=== PATIENT | female | born 1980 | race Caucasian/White ===

== ENCOUNTER 2019-03-04 22:29 | Inpatient (IN) | payer MEDICAID ==
[2019-03-04] MEDS ORDERED: TENORMIN50 MG PO (22:46)
[2019-03-04 23:47] LABS: BASOPHILS 0.1 % (0-2); EOSINOPHILS 0.5 % (0-7); HEMATOCRIT 39.9 % (36.0-48.0); HEMOGLOBIN 13.6 g/dL (12-16); IMMATURE GRANULOCYTES 0.2 % (0-5); LYMPHOCYTES 12.7 % (15-50); MCH 31.9 pg (26.0-34.0); MCHC 34.1 g/dL (31.0-37.0); MCV 93.4 fL (80.0-100.0); MEAN PLATELET VOLUME 11.7 fL (7.4-10.4); MONOCYTES 7.3 % (2-11); NEUTROPHILS 79.2 % (40-80); PLATELET COUNT 186 10x3/uL (130-400); RBC 4.27 10x6/uL (4.00-5.40); WBC 13.8 10x3/uL (4.8-10.8)
[2019-03-05 00:03] LABS: HCG SERUM NEGATIVE (NEGATIVE)
[2019-03-05 00:07] LABS: ALBUMIN 3.6 g/dL (3.4-5.0); ALKALINE PHOSPHATASE 141 U/L (46-116); ALT (SGPT) 133 U/L (10-68); BILIRUBIN - TOTAL 0.58 mg/dL (0.2-1.3); CALC OSMOLALITY 284 mosm/kg (275-300); CALCIUM 8.9 mg/dL (8.5-10.1); CARBON DIOXIDE 30.8 mmol/L (21.0-32.0); CHLORIDE - SERUM 106 mmol/L (98-107); GLUCOSE 119 mg/dL (74-106); POTASSIUM - SERUM 3.6 mmol/L (3.5-5.1); PROTEIN - SERUM 7.5 g/dL (6.4-8.2); SODIUM 143 mmol/L (136-145); UREA NITROGEN 10 mg/dL (7-18); eGFR NON AFRICAN AMERICAN 66 mL/min (90-120)
[2019-03-05 00:16] LABS: CKMB 0.1 U/L (0.0-3.6); CREATINE KINASE 70 UL (21-215)
[2019-03-05 00:29] VITALS: BP 122/82
[2019-03-05 00:39] LABS: TROPONIN-I < 0.017 ng/mL (0.000-0.060)
[2019-03-05 00:55] LABS: LIPASE 47323 U/L (73-393)
[2019-03-05 00:57] LABS: AMYLASE - SERUM 2907 U/L (25-115)
[2019-03-05 05:37] VITALS: BP 103/49
[2019-03-05 06:31] VITALS: BP 103/79; BMI 39.5
[2019-03-05 08:57] VITALS: BP 96/66
[2019-03-05 09:10] LABS: BASOPHILS 0.1 % (0-2); EOSINOPHILS 0.9 % (0-7); HEMATOCRIT 37.5 % (36.0-48.0); HEMOGLOBIN 12.4 g/dL (12-16); IMMATURE GRANULOCYTES 0.2 % (0-5); LYMPHOCYTES 21.6 % (15-50); MCH 31.3 pg (26.0-34.0); MCHC 33.1 g/dL (31.0-37.0); MCV 94.7 fL (80.0-100.0); MEAN PLATELET VOLUME 11.8 fL (7.4-10.4); MONOCYTES 9.6 % (2-11); NEUTROPHILS 67.6 % (40-80); PLATELET COUNT 165 10x3/uL (130-400); RBC 3.96 10x6/uL (4.00-5.40); RDW 13.1 % (11.5-14.5); WBC 9.8 10x3/uL (4.8-10.8)
[2019-03-05 09:36] LABS: ALBUMIN 3.1 g/dL (3.4-5.0); BILIRUBIN - TOTAL 0.36 mg/dL (0.2-1.3); CALCIUM 8.2 mg/dL (8.5-10.1); CARBON DIOXIDE 28.6 mmol/L (21.0-32.0); PROTEIN - SERUM 6.4 g/dL (6.4-8.2)
[2019-03-05 09:37] LABS: ANION GAP 9.6 mmol/L (8-16); POTASSIUM - SERUM 4.2 mmol/L (3.5-5.1)
[2019-03-05 13:51] VITALS: BMI 39.4
[2019-03-05 17:21] VITALS: BP 87/58
[2019-03-05 22:01] VITALS: BP 102/58
[2019-03-06 05:09] VITALS: BP 99/55
[2019-03-06 05:19] LABS: BASOPHILS 0.1 % (0-2); HEMOGLOBIN 11.6 g/dL (12-16); IMMATURE GRANULOCYTES 0.3 % (0-5); LYMPHOCYTES 18.3 % (15-50); MCH 30.9 pg (26.0-34.0); MCHC 32.2 g/dL (31.0-37.0); MCV 95.7 fL (80.0-100.0); MEAN PLATELET VOLUME 11.4 fL (7.4-10.4); MONOCYTES 7.9 % (2-11); NEUTROPHILS 71.4 % (40-80); PLATELET COUNT 151 10x3/uL (130-400); RBC 3.76 10x6/uL (4.00-5.40); RDW 13.3 % (11.5-14.5); WBC 9.5 10x3/uL (4.8-10.8)
[2019-03-06 05:46] LABS: ALBUMIN 2.7 g/dL (3.4-5.0); ALKALINE PHOSPHATASE 128 U/L (46-116); CALCIUM 7.6 mg/dL (8.5-10.1); CARBON DIOXIDE 25.4 mmol/L (21.0-32.0); CHLORIDE - SERUM 108 mmol/L (98-107); CREATININE - SERUM 0.8 mg/dL (0.6-1.3); GLUCOSE 95 mg/dL (74-106); LIPASE 1053 U/L (73-393); POTASSIUM - SERUM 3.7 mmol/L (3.5-5.1); PROTEIN - SERUM 6.2 g/dL (6.4-8.2); SODIUM 142 mmol/L (136-145); eGFR NON AFRICAN AMERICAN 85 mL/min (90-120)
[2019-03-06 06:11] LABS: ALT (SGPT) 311 U/L (10-68); AMYLASE - SERUM 232 U/L (25-115); CALC OSMOLALITY 280 mosm/kg (275-300); UREA NITROGEN 7 mg/dL (7-18)
[2019-03-06 09:23] VITALS: BP 118/64
[2019-03-06 14:17] VITALS: BP 140/80
[2019-03-06 17:40] VITALS: BP 103/60
[2019-03-06 22:28] VITALS: BP 120/74
[2019-03-07 05:02] VITALS: BP 123/67
[2019-03-07 06:46] LABS: BASOPHILS 0.1 % (0-2); EOSINOPHILS 0 % (0-7); HEMATOCRIT 36.3 % (36.0-48.0); HEMOGLOBIN 12.1 g/dL (12-16); IMMATURE GRANULOCYTES 0.3 % (0-5); LYMPHOCYTES 7.3 % (15-50); MCH 31.3 pg (26.0-34.0); MCHC 33.3 g/dL (31.0-37.0); MCV 93.8 fL (80.0-100.0); MEAN PLATELET VOLUME 13.1 fL (7.4-10.4); NEUTROPHILS 86.3 % (40-80); RBC 3.87 10x6/uL (4.00-5.40); RDW 12.7 % (11.5-14.5)
[2019-03-07 06:49] LABS: PLATELET COUNT 116 10x3/uL (130-400); WBC 15.1 10x3/uL (4.8-10.8)
[2019-03-07 07:16] LABS: ALBUMIN 2.8 g/dL (3.4-5.0); ALKALINE PHOSPHATASE 145 U/L (46-116); ALT (SGPT) 245 U/L (10-68); BILIRUBIN - TOTAL 0.42 mg/dL (0.2-1.3); CALC OSMOLALITY 272 mosm/kg (275-300); CALCIUM 8.1 mg/dL (8.5-10.1); CARBON DIOXIDE 22.2 mmol/L (21.0-32.0); CHLORIDE - SERUM 103 mmol/L (98-107); GLUCOSE 112 mg/dL (74-106); LIPASE 114 U/L (73-393); PROTEIN - SERUM 6.2 g/dL (6.4-8.2); SODIUM 137 mmol/L (136-145); UREA NITROGEN 7 mg/dL (7-18)
[2019-03-07 07:17] LABS: AMYLASE - SERUM 56 U/L (25-115); CREATININE - SERUM 0.5 mg/dL (0.6-1.3); POTASSIUM - SERUM 4.3 mmol/L (3.5-5.1); eGFR NON AFRICAN AMERICAN > 90 mL/min (90-120)
[2019-03-07 08:20] VITALS: BP 168/84
[2019-03-07] MEDS ORDERED: HYDROCODON-ACE1 EAC7 PO (08:56)
[2019-03-07 12:26] VITALS: BP 141/58
== END 2019-03-07 12:58 | disposition home or self-care (01) | DRG 419 ==
LOC: D.ER 22:29 → D.MS 03-05 03:34
PROVIDERS: Family Medicine; Surgery; ADMIT Internal Medicine Nephrology
PROC: 0FT44ZZ Resection of Gallbladder, Percutaneous Endoscopic Approach (ICD-10-PCS; principal; 2019-03-06 10:30)
DX: K85.10 Biliary acute pancreatitis without necrosis or infection (principal); K80.80 Other cholelithiasis without obstruction; E86.0 Dehydration; E66.01 Morbid (severe) obesity due to excess calories; Z68.39 Body mass index [BMI] 39.0-39.9, adult

== ENCOUNTER 2021-02-06 14:48 | Emergency (ER) | payer MEDICAID ==
[~2021-02-06] VITALS: Ht 152.4 cm; Wt 103.6 kg
[~2021-02-06 14:48] MED LIST: HYDROCODON-ACE1 EAC7 PO; TENORMIN50 MG PO
[2021-02-06 14:51] VITALS: BP 121/79; Ht 152.4 cm; Wt 103.6 kg
[2021-02-06 15:13] LABS: BASOPHILS 0.2 % (0-2); EOSINOPHILS 1.5 % (0-7); HEMATOCRIT 41.5 % (36.0-48.0); HEMOGLOBIN 13.6 g/dL (12-16); IMMATURE GRANULOCYTES 0.4 % (0-5); LYMPHOCYTE ABS# 2.43 10x3/uL (1.18-3.74); MCH 31.2 pg (26.0-34.0); MCHC 32.8 g/dL (31.0-37.0); MCV 95.2 fL (80.0-100.0); MEAN PLATELET VOLUME 11.2 fL (7.4-10.4); MONOCYTES 8.5 % (2-11); NEUTROPHIL ABS# 6.61 10x3/uL (1.56-6.13); NEUTROPHILS 65.4 % (40-80); RBC 4.36 10x6/uL (4.00-5.40); WBC 10.1 10x3/uL (4.8-10.8)
[2021-02-06 15:20] LABS: CALC OSMOLALITY 269 mosm/kg (275-300); CALCIUM 9.3 mg/dL (8.5-10.1); CARBON DIOXIDE 25.9 mmol/L (21.0-32.0); CHLORIDE - SERUM 102 mmol/L (98-107); CREATININE - SERUM 0.7 mg/dL (0.6-1.3); GLUCOSE 92 mg/dL (74-106); POTASSIUM - SERUM 3.8 mmol/L (3.5-5.1); SODIUM 136 mmol/L (136-145); UREA NITROGEN 7 mg/dL (7-18); eGFR NON AFRICAN AMERICAN > 90 mL/min (90-120)
[2021-02-06 15:29] LABS: HCG SERUM POSITIVE (NEGATIVE)
[2021-02-06 15:33] LABS: PLATELET COUNT 194 10x3/uL (130-400)
[2021-02-06 15:36] LABS: BILIRUBIN NEGATIVE (NEGATIVE); KETONE NEGATIVE (NEGATIVE); NITRITE NEGATIVE (NEGATIVE); UROBILINOGEN NORMAL mg/dL (< 2)
[2021-02-06 15:37] LABS: BACTERIA FEW HPF (NONE SEEN); SQUAMOUS EPITHELIAL 0-5 HPF (0-4); WHITE CELLS - URINE 0-5 HPF (0-4)
[2021-02-06 15:49] LABS: ALBUMIN 3.3 g/dL (3.4-5.0); ALKALINE PHOSPHATASE 79 U/L (30-120); ALT (SGPT) 21 U/L (10-68); BILIRUBIN - TOTAL 0.19 mg/dL (0.2-1.3); HCG - QUANTITATIVE (MATERNAL) 53176 mIU/mL; PROTEIN - SERUM 7.5 g/dL (6.4-8.2)
== END 2021-02-06 16:20 | disposition home or self-care (01) ==
LOC: D.ER 14:48
PROVIDERS: Family Medicine
DX: N93.9 Abnormal uterine and vaginal bleeding, unspecified (principal); R10.32 Left lower quadrant pain; I10 Essential (primary) hypertension

== ENCOUNTER → 2021-02-08 11:07 | Outpatient (CLI) | payer MEDICAID ==
[2021-02-06 14:51] VITALS: BMI 44.6
== END | disposition home or self-care (01) ==
LOC: D.US 11:07
PROVIDERS: ATTEND Obstetrics & Gynecology
DX: R31.0 Gross hematuria (principal)

== ENCOUNTER 2021-02-19 11:35 | Inpatient (IN) | payer MEDICAID ==
[2021-02-06 14:51] VITALS: BMI 44.6
[2021-02-19 12:23] LABS: BASOPHILS 0.1 % (0-2); HEMATOCRIT 36.8 % (36.0-48.0); HEMOGLOBIN 12.2 g/dL (12-16); IMMATURE GRANULOCYTES 0.5 % (0-5); LYMPHOCYTE ABS# 1.74 10x3/uL (1.18-3.74); LYMPHOCYTES 20.1 % (15-50); MCH 31.3 pg (26.0-34.0); MCHC 33.2 g/dL (31.0-37.0); MCV 94.4 fL (80.0-100.0); MEAN PLATELET VOLUME 11.5 fL (7.4-10.4); MONOCYTES 8.7 % (2-11); NEUTROPHIL ABS# 5.94 10x3/uL (1.56-6.13); NEUTROPHILS 68.6 % (40-80); PLATELET COUNT 204 10x3/uL (130-400); WBC 8.7 10x3/uL (4.8-10.8)
[2021-02-19] MEDS ORDERED: PRENAVITE1 TAB PO (15:59)
[2021-02-19 17:39] LABS: BILIRUBIN NEGATIVE (NEGATIVE); KETONE NEGATIVE (NEGATIVE); NITRITE NEGATIVE (NEGATIVE); UROBILINOGEN NORMAL mg/dL (< 2)
[2021-02-19 17:40] LABS: BACTERIA MANY HPF (NONE SEEN); SQUAMOUS EPITHELIAL 0-5 HPF (0-4)
== END 2021-02-19 18:35 | disposition home or self-care (01) | DRG 833 ==
LOC: D.LDO 11:35 → D.LD 16:00
PROVIDERS: ADMIT Obstetrics & Gynecology; ATTEND Obstetrics & Gynecology
DX: O26.891 Other specified pregnancy related conditions, first trimester (principal); Z3A.12 12 weeks gestation of pregnancy; R31.9 Hematuria, unspecified